=== PATIENT | female | born 1990 | race African-American/Black ===

== ENCOUNTER 2017-05-05 17:33 | Emergency (ER) | payer OTHER ==
[~2017-05-05] VITALS: Ht 172.7 cm; Wt 95.5 kg
[~2017-05-05 17:33] MED LIST: MACROBID 1100 MG/CAP PO; NAPROSYN500 MG PO; NO HOME MEDICATIONS
[2017-05-05 17:36] VITALS: BP 128/75; TEMP 98.9
[2017-05-05] MEDS ORDERED: LOMAIRA8 MG PO (17:44)
[2017-05-05 18:06] LABS: PH 7 (5-8); SQUAMOUS EPITHELIAL 0-2 /hpf; URINE APPEARANCE Clear; URINE BACTERIA Rare /hpf; URINE BILIRUBIN Negative (NEGATIVE); URINE BLOOD Negative (NEGATIVE); URINE COLOR Yellow; URINE GLUCOSE Negative (NEGATIVE); URINE KETONE Negative (NEGATIVE); URINE RBC 0-2 /hpf; URINE UROBILINOGEN Negative (NEGATIVE)
[2017-05-05 19:52] VITALS: PULSE 90
== END 2017-05-05 19:54 | disposition home or self-care (01) ==
LOC: COL.ER 17:33
PROVIDERS: Emergency Medicine
DX: R11.10 Vomiting, unspecified (principal)
CPT/HCPCS: J2550; J7030

== ENCOUNTER 2017-12-20 07:54 | Emergency (ER) | payer OTHER ==
[~2017-12-20] VITALS: Ht 170.2 cm; Wt 86.4 kg
[~2017-12-20 07:54] MED LIST changes: +LOMAIRA8 MG PO
[2017-12-20] MEDS ORDERED: NEXIUM 20MG20 MG PO (09:48)
[2017-12-20 10:18] VITALS: BP 125/81; PULSE 82; TEMP 98.7
== END 2017-12-20 10:18 | disposition home or self-care (01) ==
LOC: COL.ER 07:54
DX: R07.89 Other chest pain (principal)

== ENCOUNTER → 2019-02-13 | Outpatient (CLI) | payer OTHER ==
[~2019-02-13] MED LIST changes: +NEXIUM 20MG20 MG PO
== END ==
LOC: WSOH 09:07
DX: Z02.1 Encounter for pre-employment examination (principal)